=== PATIENT | male | born 1950 | race Caucasian/White ===

== ENCOUNTER 2021-07-27 10:26 | Outpatient (CLI) | payer MEDICARE, OTHER, SELFPAY ==
--- NOTE | ~2021-07-27 | XR_ITS ---
EXAMINATION: XR abdomen/kub 1V INDICATION: Right-sided kidney stone TECHNIQUE: Supine views of the abdomen were obtained on 2 radiographs. COMPARISON: None FINDINGS: Bowel contents project over the kidneys limiting sensitivity for renal stones. There is a q uestionable 1.5 cm stone of the right kidney. No stones are identified along the expected course of t he ureters or within the urinary bladder. The bowel gas pattern is normal. There is moderate to sever e lumbar spondylosis. IMPRESSION: 1. Possible right kidney stone, sensitivity slightly limited by bowel contents. Reviewed, dictated and finalized at location F. LTY TWISTER OPERATOR
== END 2021-07-27 10:27 | disposition home or self-care (01) ==
PROVIDERS: PCP Family Medicine; Visit Provider Urology
DX: N20.0 Calculus of kidney (principal)
CPT/HCPCS: 74018

== ENCOUNTER 2021-07-28 13:02 | Outpatient (CLI) | payer MEDICARE, OTHER, SELFPAY ==
--- NOTE | 2021-07-28 13:11 | ECG_ITS ---
Measurements Intervals [place] Rate: 77 P: 1 IA: 317 QRS: -13 QRSD: 125 T: 87 QT: 381 QTc: 433 Interpretive Statements SINUS RHYTHM WITH FIRST DEGREE AV BLOCK INTRAVENTRICULAR CONDUCTION DELAY ANTEROSEPTAL INFARCT, AGE INDETERMINATE BORDERLINE ST-T WAVE ABNORMALITY- HIGH LATERAL LEADS BASELINE ARTIFACT- I, II, III, AVR, AVL, AVF ABNORMAL ECG Electronically Signed On 07-28-2021 13:56:52 DRUM DYEING MACHINE OPERATOR by Enrique Ibarra D.O.
[2021-07-28 13:55] LABS: Prothrombin Time 12.8 Seconds (11.1-14.7)
[2021-07-28 13:56] LABS: Partial Thromboplastin Time 29.7 SECONDS (22.3-36.8)
[2021-07-28 13:57] LABS: Anion Gap 9 mmol/L (8-16); Blood Urea Nitrogen 30 mg/dL (9-20); Calcium 8.7 mg/dL (8.4-10.2); Carbon Dioxide 27 mmol/L (22-30); Chloride 98 mmol/L (98-107); Estimated Glomerular Filt Rate 55; Glucose 237 mg/dL (65-110); Sodium 134 mmol/L (137-145)
== END 2021-07-28 13:03 | disposition home or self-care (01) ==
LOC: ANHSURGERY 13:07
PROVIDERS: Anesthesiology; PCP Family Medicine; Visit Provider Urology
DX: Z01.818 Encounter for other preprocedural examination (principal); N20.0 Calculus of kidney; E11.9 Type 2 diabetes mellitus without complications; I10 Essential (primary) hypertension; R94.31 Abnormal electrocardiogram [ECG] [EKG]
CPT/HCPCS: 36415; 80048; 85610; 85730; 87086; 93005

== ENCOUNTER 2021-07-31 01:03 | Day surgery (SDC) | payer MEDICARE, OTHER, SELFPAY ==
--- NOTE | 2021-07-28 10:43 | PC.NURSE ---
Report to the Outpatient Waiting Room, entrance under the green pavilion located off [facility], at time _0630 on date __07/31/21 . OR Time: . - You and your visitor will be asked a series of questions to screen for COVID 19 for your protection. - A mask is required within the hospital. Preoperative COVID Testing Requirements: No COVID Test needed if: (proof is required; if not received patient will have Rapid Test prior to entry) - Patient has received COVID Vaccine at least 14 days prior to procedure date or - Patient has positive COVID test result within last 90 days of surgery date. COVID Test needed if above criteria is not met If not COVID vaccinated a COVID test must be conducted within 72 hours of surgery and patient is asked to isolate self from time of testing until procedure. You will go to the [facility] for your COVID testing. The [facility] is located at the corner of [address] [facility]. You will only be called if COVID results are positive and your surgeon may reschedule your elective surgery date. Patients may have clear liquids (water, carbonated beverages, clear teas, apple juice) until 3 hours prior to surgery with a maximum of 20 ounces. - No food from midnight until time of surgery - Infants may have breast milk until 4 hours before surgery, infant formula 6 hours prior to surgery. - Children will be allowed to drink immediately following surgery. If applicable, please bring a bottle or sippy cup to assist with drinking. Juice, water, soda, and popsicles are readily available. For infants on formula, please bring formula the day of surgery. Pacifiers are allowed. Take the following medications with a SIP of water the morning of surgery: _AMLODIPINE,CARVEDILOL,GABAPENTIN,LEVOTHYROXINE Medications to discontinue per physician __PT STATES HAS ALL READY STOPPED ASPIRIN PER DR CRUZ, ALL VITAMINS AND SUPPLEMENTS 3 DAYS PRE OP Date to take last dose__07/27/21 Please no make-up, nail egyptian, hairspray, perfume, deodorant, or body powder the day of surgery. No jewelry (including any body piercings) or valuables the day of surgery, leave them at home. Please take a shower or bath the night before, or the morning of, surgery with an antibacterial soap. Wear comfortable, loose fitting clothing. Children are encouraged to wear pajamas. - Jewelry must be removed prior to entering the operating room. Rings and piercings that are not removed may be cut off. - The hospital will not accept responsibility for valuables. - Please leave all valuables, including medications, at home the day of surgery. If you are going home after surgery, a licensed truck driver teamster must drive you home. - NO public transportation without another adult. - We recommend that an adult stay with you for 24 hours following discharge. - We also recommend that you do not drive, make important decision, drink alcoholic beverages, or take any drugs that were not prescribed by your health care provider for at least 24 hours after your discharge time. For Pediatric surgeries, we recommend two adults accompany the child home (only one inside the building at this time). One visitor will be allowed to accompany the patient into the hospital. Patients visitor will be instructed to remain with patient at all times or leave the building. We will allow the visitor to come back to the postoperative area when patient is ready. Follow any additional instructions given to you from your surgeon. Telephone instructions given to __PATIENT and asked if any additional questions and then verbalized understanding. Patient advised to call surgeon office or pre surgery nurse liaison [phone] if any additional questions.
[2021-07-28 10:54] VITALS: BMI 36.3
[2021-07-31] VITALS (8 sets, daily range): BP systolic 129–162; BP diastolic 80–93; PULSE 70–87; RESP 16–19; TEMP 36.5–36.6; O2SAT 98–100
--- NOTE | ~2021-07-31 | XR_ITS ---
EXAMINATION: XR abdomen/kub 1V DATE: 07/31/2021 06:49 INDICATION: Kidney stone. TECHNIQUE: A supine view of the abdomen on 2 radiographs was obtained. COMPARISON: Abdomen radiographs 07/27/2021 FINDINGS: There are no dilated loops of bowel. The kidneys are obscured by bowel. There is no visible urolithiasis. IMPRESSION: 1. No visible urolithiasis. Reviewed, dictated and finalized at location A. [facility] [employer] IMPRESSION: 1. No visible urolithiasis.
--- NOTE | 2021-07-31 06:47 | WPDHPUPDATE1 ---
History and Physical Update Update Date/Time: 07/31/21 06:47 13mm right renal stone difficult to see on KUB today. Will plan possible cystoscopy with right retrograde pyelography. History and Physical has been reviewed, including an updated exam of the patient. There are NO changes in the patient's condition. Risks, benefits, and alternatives have been discussed and questions answered. Patient agrees to proceed with procedure.
[2021-07-31] MEDS: LACTATED RINGERS 1,000 ML 30 ML IV CONT (07:00)
[2021-07-31 07:28] LABS: Glucose Point of Care 150 mg/dl (65-105)
--- NOTE | 2021-07-31 07:51 | WPDANESEPPF ---
Anes - Initial Pre Proc Eval Procedure: Operation Date: 07/31/21 08:30 Proposed Procedures p Right Extracorporeal Shock Wave Lithotripsy - Doc Duckworth MD Date/Time: 07/31/21 07:51 Surgeon: Doc Duckworth MD Pre Op Diagnosis: right renal kidney stone Patient Data Age: 70 Gender: M Height: 1.85 m Weight: 124.75 kg Allergies Allergy/AdvReac Type Severity Reaction Status Date / Time lisinopril AdvReac ELEVATE Verified 07/31/21 07:45 POTASSIUM Home Medications Medication Instructions Recorded Confirmed Type amlodipine 10 mg PO DAILY 07/28/21 07/28/21 History aspirin [Adult Low Dose Aspirin] 81 mg PO HS 07/28/21 07/28/21 History carvedilol 6.25 mg PO BID 07/28/21 07/28/21 History cholecalciferol (vitamin D3) 50 mcg PO DAILY 07/28/21 07/28/21 History cyanocobalamin (vitamin B-12) 1,000 mcg PO DAILY 07/28/21 07/28/21 History empagliflozin 25 mg PO DAILY 07/28/21 07/28/21 History ezetimibe 10 mg PO DAILY 07/28/21 07/28/21 History gabapentin 300 mg PO DAILY 07/28/21 07/28/21 History glipizide 5 mg PO BID 07/28/21 07/28/21 History hydrochlorothiazide 25 mg PO DAILY 07/28/21 07/28/21 History insulin degludec [Tresiba 50 unit SUBCUT QPM 07/28/21 07/28/21 History FlexTouch U-200] levothyroxine 175 mcg PO DAILY 07/28/21 07/28/21 History metformin 1,000 mg PO BID 07/28/21 07/28/21 History rosuvastatin 10 mg PO DAILY 07/28/21 07/28/21 History semaglutide [Ozempic] 1 mg SUBCUT WEEKLY 07/28/21 07/28/21 History turmeric 400 mg PO DAILY 07/28/21 07/28/21 History Laboratory Tests 07/31/21 07:19 POC Capillary Glucose 150 mg/dl H mg/dl (65-105) Patient hx anesthesia problems: none Family hx anesthesia problems: none Results Review: All pre-operative results and documents have been reviewed as part of the pre-operative evaluation. [facility] Past Medical History Medical History (Updated 07/31/21 @ 07:51 by Roberth Scott MD) Diabetes HTN (hypertension) Hyperlipidemia JACKELYN (obstructive sleep apnea) Surgical History Surgical History (Updated 07/31/21 @ 07:52 by Roberth Scott MD) History of total knee arthroplasty Social History Social History Smoking status: Never smoker Alcohol intake: current Drinks per week: 1 Living arrangements: alone Spiritual care concerns: No Anes - Eval Final PreProcedure Day of Procedure 07/31/21 07:51 Patient weight: obese Heart: regular rate and rhythm Lungs: clear to auscultation Airway: Mallampati scale class II Neurological: alert and oriented Last oral intake: >/= 8 hours ASA classification: III Emergent: no Anesthetic plan: proceed Anesthesia type and monitoring: general LMA and standard monitoring Results Review: All pre-operative results and documents have been reviewed as part of the pre-operative evaluation. Informed Consent: The patient's anesthetic plan and its attendant risks and benefits were discussed with the patient/family/POA. Questions were solicited and answers provided to the satisfaction of the patient/family/POA.
[2021-07-31] MEDS: ceFAZolin 3 GM/D5W 100 ML 100 ML IVPB (08:45)
--- NOTE | 2021-07-31 09:23 | W.PM.PROC2 ---
Procedure Note - Detailed Date of Procedure 07/31/21 Pre-op Diagnosis Right renal kidney stone Post-op Diagnosis same Procedure Performed Cystoscopy, right retrograde pyelography Right ESWL Surgeon Doc Duckworth MD Anesthesia general Description of Procedure The patient was brought to the operative suite where he was placed in the supine position on the Dornier lithotripsy table. I could not definitively identify his right calculus on fluoroscopy therefore opted to cystoscopy with right retrograde pyelography. Cystoscopy was undertaken with a 16 F flexible cystoscope. He had no urethral strictures. 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 Bladder was mildly trabeculated. There is intravesical foreign neoplasm. Single orthotopic orifice bilaterally. 0.035 in glidewire was advanced in the right renal pelvis and retrograde pyelography was undertaken via a angiographic catheter. The 13 mm calculus could be identified an upper calyx.The focal point of the lithotripter was placed at that calculus. A total of 2500 shocks were delivered at a power setting of 4. There appeared to be good fragmentation of the stone. The patient tolerated the procedure well and was taken to the recovery room in good condition. Drains No Packing No Pathology none sent Complications No immediate complications Condition stable Disposition PACU
[2021-07-31 10:03] LABS: Glucose Point of Care 150 mg/dl (65-105)
--- NOTE | 2021-07-31 10:07 | SUR.PHASEI ---
0945-- right flank skin intact. without bruising or other issues. pt withot c/o pain.
== END 2021-07-31 11:25 | disposition home or self-care (01) ==
PROVIDERS: PCP Family Medicine; Visit Provider Urology
PROC: (CPT 50590; principal; 2021-07-31 08:30)
PROC: (CPT 52352; 2021-07-31 08:30)
DX: N20.0 Calculus of kidney (principal); Z79.82 Long term (current) use of aspirin; Z79.84 Long term (current) use of oral hypoglycemic drugs; E03.9 Hypothyroidism, unspecified; Z79.4 Long term (current) use of insulin; E11.9 Type 2 diabetes mellitus without complications; I10 Essential (primary) hypertension; E78.5 Hyperlipidemia, unspecified; G47.33 Obstructive sleep apnea (adult) (pediatric); E66.9 Obesity, unspecified; Z68.35 Body mass index [BMI] 35.0-35.9, adult
CPT/HCPCS: 50590; 74018; 82948; A9270; C1769; C1887; J0690; J2405; J2704; J3010; J7030; J7120; Q9966

== ENCOUNTER 2021-09-08 09:50 | Emergency (ER) | payer MEDICARE, OTHER, SELFPAY ==
[2021-09-08 09:59] VITALS: BP 106/69; PULSE 82; RESP 18; TEMP 36.1; O2SAT 97
[2021-09-08 12:14] LABS: Basophils Absolute Auto 0.1 K/mm3 (0.0-0.1); Basophils Percent Auto 0.3 % (0.2-1.2); Eosinophils Absolute Auto 0.1 K/mm3 (0-0.3); Eosinophils Percent Auto 0.7 % (0-4.4); Hematocrit 51.9 % (42.0-52.0); Immature Granulocyte Absolute 0.14 K/mm3 (0.00-0.031); Immature Granulocyte Percent A 0.9 % (0-0.5); Lymphocytes Absolute Auto 1.26 K/mm3 (0.9-3.2); Lymphocytes Percent Auto 7.8 % (18.3-44.2); Mean Corpuscular HGB Conc 32.8 g/dl (32-36); Mean Corpuscular Hemoglobin 28.8 pg (26-34); Mean Corpuscular Volume 87.8 fl (80-100); Mean Platelet Volume 8.3 fl (7.4-10.4); Monocytes Absolute Auto 1.8 K/mm3 (0.1-0.6); Monocytes Percent Auto 10.9 % (2.6-8.5); Neutrophils Absolute Auto 12.8 K/mm3 (1.3-6.7); Neutrophils Percent Auto 79.4 % (45.5-73.1); Platelet Count Result 303 k/mm3 (150-375); Red Blood Count 5.91 M/mm3 (4.6-6.20); White Blood Count 16.2 K/mm3 (4.5-10.0)
[2021-09-08 12:25] LABS: Alanine Aminotransferase 16 U/L (4-50); Albumin Level 4.4 g/dL (3.5-5.1); Alkaline Phosphatase 109 U/L (38-126); Anion Gap 9 mmol/L (8-16); Aspartate Amino Transferase 23 U/L (17-59); Bilirubin,Total 0.7 mg/dL (0.2-1.3); Blood Urea Nitrogen 35 mg/dL (9-20); Calcium 9.1 mg/dL (8.4-10.2); Carbon Dioxide 26 mmol/L (22-30); Chloride 96 mmol/L (98-107); Estimated CRCL calculation 66 ml/min; Estimated Glomerular Filt Rate 55; Glucose 151 mg/dL (65-110); Potassium 4.1 mmol/L (3.4-5.0); Sodium 131 mmol/L (137-145)
--- NOTE | 2021-09-08 12:57 | ED.EXTPRO ---
HPI - Extremity Problem General Chief complaint: Extremity Problem,Nontraumatic Stated complaint: feet pain Time Seen by Provider: 09/08/21 11:37 Source: patient Mode of arrival: ambulatory Limitations: no limitations History of Present Illness HPI Narrative: Pt is a 70 y/o male, PMHx of gout, HTN and DM, presents to ED via pOV with pain and swelling of the 1st MTP joint of both feet and the right index finger PIP joint, consistent with gout he has experienced in the past. He denies any known exacerbating events and he denies trauma. HE has not changed his diet or started any new medications. He does take HCTZ for BP and has for several years. He recently had a steroid injection in the right knee last week. This was well tolerated and he has no pain, swelling or erythema of the right knee. He no longer takes Allopurinol after having several years without a gouty flare. He denies any additional associated symptoms or modifying factors. MD Complaint: other (refer to HPI) Onset (ago): day(s) (3) Pain Consistency: constant Location: other (refer to HPI) Severity scale (1-10): 7 Quality: stabbing and aching Radiation: other (refer to HPI) Relieving factors: other (one dose of Naproxen yesterday improved some of his discomfort) Exacerbating factors: weight bearing and palpation Associated symptoms: denies other symptoms Related Data Home Medications Medication Instructions Recorded Confirmed Ozempic 1 mg SUBCUT WEEKLY 07/28/21 07/31/21 Tresiba FlexTouch U-200 50 unit SUBCUT QPM 07/28/21 07/31/21 amlodipine 10 mg PO DAILY 07/28/21 07/31/21 aspirin 81 mg PO HS 07/28/21 07/31/21 carvedilol 6.25 mg PO BID 07/28/21 07/31/21 cholecalciferol (vitamin D3) 50 mcg PO DAILY 07/28/21 07/31/21 cyanocobalamin (vitamin B-12) 1,000 mcg PO DAILY 07/28/21 07/31/21 empagliflozin 25 mg PO DAILY 07/28/21 07/31/21 ezetimibe 10 mg PO DAILY 07/28/21 07/31/21 gabapentin 300 mg PO DAILY 07/28/21 07/31/21 glipizide 5 mg PO BID 07/28/21 07/31/21 hydrochlorothiazide 25 mg PO DAILY 07/28/21 07/31/21 levothyroxine 175 mcg PO DAILY 07/28/21 07/31/21 metformin 1,000 mg PO BID 07/28/21 07/31/21 rosuvastatin 10 mg PO DAILY 07/28/21 07/31/21 turmeric 400 mg PO DAILY 07/28/21 07/31/21 Allergies Allergy/AdvReac Type Severity Reaction Status Date / Time lisinopril AdvReac ELEVATE Verified 07/31/21 07:45 POTASSIUM Review of Systems Review of Systems: refer to HPI Musculoskeletal: Musculoskeletal: Reports as per HPI [facility] Past Medical History Medical History Diabetes HTN (hypertension) Hyperlipidemia JACKELYN (obstructive sleep apnea) Surgical History Surgical History History of total knee arthroplasty Social History Social History Smoking status: Never smoker Alcohol intake: current Drinks per week: 1 Spiritual care concerns: No Exam Const: General: healthy appearing, no acute distress and alert Nutritional Appearance: obese Orientation/consciousness: patient oriented x3 HENMT: Head: normal to inspection Eyes: Conjunctivae: conjunctivae normal Pupils: Equal, round and reactive pupils present EOM: EOMs intact bilaterally Neck: Neck: normal visual inspection Chest: Chest palpation & inspection: normal inspection of the chest Resp: Effort & Inspection: normal respiratory effort Auscultation: clear to auscultation bilaterally Cardio: Rate: regular rate GI: GI Palp: Yes Soft to palpation Back/Spine/Pelvis: Back: no CVA tenderness Skin: General skin exam: normal color Neuro: General: patient oriented x3, moves all extremities, no meningeal signs and no focal motor deficits Extrem: Other: Pt has swelling of the right index PIP joint, no erythema noted. Pain increases with flexion and extension. Distal PMS intact. Bilateral 1st MTP joints are swollen and TTP. He emery
== END 2021-09-08 13:50 | disposition home or self-care (01) ==
PROVIDERS: Emergency Provider Nurse Practitioner Family; PCP Family Medicine
DX: M10.9 Gout, unspecified (principal); E11.9 Type 2 diabetes mellitus without complications; I10 Essential (primary) hypertension; E78.5 Hyperlipidemia, unspecified; G47.33 Obstructive sleep apnea (adult) (pediatric); Z79.899 Other long term (current) drug therapy; Z79.82 Long term (current) use of aspirin; Z88.8 Allergy status to other drugs, medicaments and biological substances
CPT/HCPCS: 36415; 80053; 84550; 85025; 99283

== ENCOUNTER 2022-02-22 12:15 | Outpatient (CLI) | payer MEDICARE, OTHER, SELFPAY ==
--- NOTE | ~2022-02-22 | CT_ITS ---
EXAMINATION: CT abdomen pelvis wo con DATE: 02/22/2022 12:44 INDICATION: Low abdominal pain. Dysuria. TECHNIQUE: Computed tomography (CT) of the abdomen and pelvis was performed without intravenous contr ast. Automated exposure control and iterative reconstruction technique were employed. The dose-length product was 1370.24 mGy-cm. COMPARISON: None. FINDINGS: The visualized portions of the lung bases demonstrate mild atelectasis. Calcified pulmonary nodules are consistent with old granulomatous disease. No pleural effusion. The heart size is normal . There are coronary artery calcifications. There is a trace pericardial effusion. The liver, gallbla dder, spleen, pancreas, and adrenal glands are normal. There are cysts in the kidneys measuring up to 3.0 cm on the right. There is a 9 mm stone in right kidney. There are scattered diverticula in the c olon. There is old fat necrosis involving an epiploic appendage of sigmoid colon. There are no dilate d loops of bowel. The appendix is normal. There are no pathologically enlarged lymph nodes. There is no free intraperitoneal fluid. There is severe lumbar spondylosis. There are bridging endplate osteop hytes at multiple levels in the thoracic spine, consistent with diffuse idiopathic skeletal hyperosto sis (DISH). IMPRESSION: 1. 9 mm right kidney stone. Reviewed, dictated and finalized at location A. IMPRESSION: 1. 9 mm right kidney stone.
--- NOTE | ~2022-02-22 | XR_ITS ---
XR abdomen/kub 1V 02/22/2022 12:36 Indication: Complicated UTI. Procedure: KUB Comparison: 07/31/2021 Findings: There is a stone in the lower pole of the right kidney. Bowel gas pattern nonobstructive. M oderate-severe lumbar spondylosis. No acute osseous abnormality. Impression: 1: Right nephrolithiasis. Reviewed, dictated and finalized at location A. Impression: 1: Right nephrolithiasis.
== END 2022-02-22 12:16 | disposition home or self-care (01) ==
LOC: ANHIMG 12:21
PROVIDERS: PCP Family Medicine; Visit Provider Urology
DX: N39.0 Urinary tract infection, site not specified (principal); N20.0 Calculus of kidney
CPT/HCPCS: 74018; 74176

== ENCOUNTER 2022-03-18 10:18 | Outpatient (CLI) | payer MEDICARE, OTHER, SELFPAY ==
[2022-03-18 10:59] LABS: Anion Gap 10 mmol/L (8-16); Blood Urea Nitrogen 32 mg/dL (9-20); Calcium 9.5 mg/dL (8.4-10.2); Carbon Dioxide 26 mmol/L (22-30); Chloride 99 mmol/L (98-107); Estimated Glomerular Filt Rate 60; Glucose 202 mg/dL (65-110); Potassium 3.7 mmol/L (3.4-5.0); Sodium 135 mmol/L (137-145)
== END 2022-03-18 10:19 | disposition home or self-care (01) ==
PROVIDERS: Anesthesiology; PCP Family Medicine; Visit Provider Urology
DX: Z01.818 Encounter for other preprocedural examination (principal); E11.9 Type 2 diabetes mellitus without complications
CPT/HCPCS: 36415; 80048

== ENCOUNTER 2022-03-25 01:04 | Day surgery (SDC) | payer MEDICARE, OTHER, SELFPAY ==
--- NOTE | 2022-03-12 11:42 | PC.NURSE ---
Report to the Outpatient Waiting Room, entrance under the green pavilion located off [facility], at time _0615 on date ___03/25/22____. OR Time: __08 . Time changes happen often and if your time is changed the preop area will call you the afternoon before. - You and your visitor will be asked to self-screen and do not enter if you have any COVID symptoms. - We encourage only one visitor and NO visitors under age 16 are allowed at this time. Your visitor will receive communication by the phone number that is given day of service. - The patient visitor is requested to social distance or may leave the building when not with patient due to restrictions. - A mask is required within the hospital. Patients may have clear liquids (water, carbonated beverages, clear teas, apple juice) until 3 hours prior to surgery with a maximum of 20 ounces. - No food from midnight until time of surgery - Infants may have breast milk until 4 hours before surgery, infant formula 6 hours prior to surgery. - Children will be allowed to drink immediately following surgery. If applicable, please bring a bottle or sippy cup to assist with drinking. Juice, water, soda, and popsicles are readily available. For infants on formula, please bring formula the day of surgery. Pacifiers are allowed. Take the following medications with a SIP of water the morning of surgery: _AMLODIPINE,CARVEDILOL,GABAPENTIN,LEVOTHYROXINE Medications to discontinue per physician __PT TO CALL DR CRUZ REGARDING IF TO HOLD ASPIRIN. ALL VITAMINS/SUPPLEMENTS 3 DAYS PRE OP Date to take last dose____03/21/22 Please no make-up, nail bengali, hairspray, perfume, deodorant, or body powder the day of surgery. No jewelry (including any body piercings) or valuables the day of surgery, leave them at home. Please take a shower or bath the night before, or the morning of, surgery with an antibacterial soap. Wear comfortable, loose fitting clothing. Children are encouraged to wear pajamas. - Jewelry must be removed prior to entering the operating room. Rings and piercings that are not removed may be cut off. - The hospital will not accept responsibility for valuables. - Please leave all valuables, including medications, at home the day of surgery. If you are going home after surgery, a licensed skidder driver must drive you home. - NO public transportation without another adult. - We recommend that an adult stay with you for 24 hours following discharge. - We also recommend that you do not drive, make important decision, drink alcoholic beverages, or take any drugs that were not prescribed by your health care provider for at least 24 hours after your discharge time. For Pediatric surgeries, we recommend two adults accompany the child home. Follow any additional instructions given to you from your surgeon. If you or anyone in your household have experienced Covid symptoms in the past week, please notify your surgeon or the nurse liaison at the phone number below for possible testing. Telephone instructions given to __PATIENT and asked if any additional questions and then verbalized understanding. Patient advised to call surgeon office or pre surgery nurse liaison [phone] if any additional questions.
[2022-03-12 11:51] VITALS: BMI 31.0
--- NOTE | 2022-03-24 10:24 | WPDANESEPPF ---
Anes - Initial Pre Proc Eval Procedure: Operation Date: 03/25/22 08:15 Proposed Procedures p Cystoscopy, Bilateral Retrograde Pyelogram, Bladder Biopsy - Doc Duckworth MD Date/Time: 03/24/22 10:24 Surgeon: Doc Duckworth MD Pre Op Diagnosis: complicated UTI Patient Data Age: 71 Gender: M Height: 1.88 m Weight: 109.77 kg Allergies Allergy/AdvReac Type Severity Reaction Status Date / Time duloxetine [From Cymbalta] AdvReac Hypotension Verified 03/25/22 06:54 lisinopril AdvReac ELEVATE Verified 03/25/22 06:54 POTASSIUM Home Medications Medication Instructions Recorded Confirmed Type amlodipine 10 mg tablet 10 mg PO DAILY 07/28/21 03/25/22 History aspirin 81 mg tablet 81 mg PO HS 07/28/21 03/25/22 History carvedilol 6.25 mg tablet 6.25 mg PO BID 07/28/21 03/12/22 History cholecalciferol (vitamin D3) 50 50 mcg PO DAILY 07/28/21 03/25/22 History mcg (2,000 unit) tablet cyanocobalamin (vitamin B-12) 1,000 mcg PO DAILY 07/28/21 03/25/22 History 1,000 mcg tablet empagliflozin 25 mg tablet 25 mg PO DAILY 07/28/21 03/12/22 History ezetimibe 10 mg tablet 10 mg PO DAILY 07/28/21 03/12/22 History gabapentin 300 mg capsule 300 mg PO DAILY 07/28/21 03/25/22 History glipizide 5 mg tablet 5 mg PO BID 07/28/21 03/12/22 History hydrochlorothiazide 25 mg tablet 25 mg PO DAILY 07/28/21 03/12/22 History insulin degludec 200 unit/mL (3 50 unit subcut QPM 07/28/21 03/12/22 History mL) subcutaneous pen (Tresiba FlexTouch U-200 insulin) levothyroxine 175 mcg tablet 175 mcg PO DAILY 07/28/21 03/25/22 History metformin 500 mg tablet,extended 1,000 mg PO BID 07/28/21 03/12/22 History release 24 hr rosuvastatin 10 mg tablet 10 mg PO DAILY 07/28/21 03/12/22 History semaglutide 1 mg/dose (4 mg/3 mL) 1 mg subcut WEEKLY 07/28/21 03/12/22 History subcutaneous pen injector (Ozempic) turmeric 400 mg capsule 400 mg PO DAILY 07/28/21 03/25/22 History acetaminophen 650 mg 1,300 mg PO Q12H PRN Pain 03/12/22 03/12/22 History tablet,extended release (Tylenol Arthritis Pain) allopurinol 100 mg tablet 300 mg PO BID 03/12/22 03/12/22 History hydroxychloroquine 200 mg tablet 200 mg PO BID 03/12/22 03/12/22 History Patient hx anesthesia problems: none Family hx anesthesia problems: none Results Review: All pre-operative results and documents have been reviewed as part of the pre-operative evaluation. [facility] Past Medical History Medical History (Updated 03/24/22 @ 10:24 by Pb Degroot DO) Diabetes HTN (hypertension) Hyperlipidemia Hypothyroidism Neuropathy JACKELYN (obstructive sleep apnea) Surgical History Surgical History History of total knee arthroplasty Social History Social History Smoking status: Never smoker Alcohol intake: current Drinks per week: 1 Living arrangements: alone Spiritual care concerns: No Anes - Eval Final PreProcedure Day of Procedure 03/24/22 10:24 Patient weight: obese Heart: regular rate and rhythm Lungs: clear to auscultation Airway: Mallampati scale class III Neurological: alert and oriented Last oral intake: >/= 8 hours ASA classification: III Emergent: no Anesthetic plan: proceed Anesthesia type and monitoring: general LMA and standard monitoring Results Review: All pre-operative results and documents have been reviewed as part of the pre-operative evaluation. Informed Consent: The patient's anesthetic plan and its attendant risks and benefits were discussed with the patient/family/POA. Questions were solicited and answers provided to the satisfaction of the patient/family/POA.
[2022-03-25] VITALS (7 sets, daily range): BP systolic 140–170; BP diastolic 79–94; PULSE 66–86; RESP 16–20; TEMP 36.4–36.7; O2SAT 96–100; BMI 31.2
--- NOTE | ~2022-03-25 | XR_ITS ---
EXAMINATION: XR retrograde pyelogram BI DATE: 03/25/2022 09:05 CDT INDICATION: Right renal stone TECHNIQUE: Multiple fluoroscopic images from bilateral retrograde pyelogram are submitted for review. 42 seconds of fluoroscopy. 108 fluoroscopic images. FINDINGS: Normal left retrograde pyelogram. There is a filling defect in the lower pole calyx of the right kidney, consistent with known renal stone. No hydronephrosis. IMPRESSION: 1. Filling defect lower pole calyx of the right kidney, consistent with renal stone identified on CT dated 02/22/2022.. Correlate with real time procedural findings for details. Reviewed, dictated and finalized at location A. IMPRESSION: 1. Filling defect lower pole calyx of the right kidney, consistent with renal stone identified on CT dated 02/22/2022.. Correlate with real time procedural fi ndings for details.
--- NOTE | 2022-03-25 06:40 | WPDHPUPDATE1 ---
History and Physical Update Update Date/Time: 03/25/22 06:40 History and Physical has been reviewed, including an updated exam of the patient. There are NO changes in the patient's condition. Risks, benefits, and alternatives have been discussed and questions answered. Patient agrees to proceed with procedure.
[2022-03-25] MEDS: LACTATED RINGERS 1,000 ML 30 ML IV CONT (07:05)
[2022-03-25 07:22] LABS: Glucose Point of Care 118 mg/dl (65-105)
[2022-03-25] MEDS: ceFAZolin 2 GM/D5W 50 ML 2 GM/50 ML BAG IVPB (08:08)
[2022-03-25] MEDS: LIDOCAINE HCL 2% GEL UROJET 10 ML PKG MUCOUS MEM (08:17)
--- NOTE | 2022-03-25 08:40 | W.PM.PROC2 ---
Procedure Note - Detailed Date of Procedure 03/25/22 Pre-op Diagnosis Complicated UTI Post-op Diagnosis Same Procedure Performed Cystoscopy, bilateral retrograde pyelography, bladder biopsy Surgeon Doc Duckworth MD Description of Procedure patient is brought to the operative suite where he was prepped draped in routine sterile fashion while in dorsal lithotomy position after the uneventful induction of a general LMA anesthetic. Cystoscopy is undertaken with a 21 F rigid cystoscope. There was no urethral stricture. He has moderate lateral lobe hyperplasia with a small median. His prostatic urethra measures approximately 2.5 cm. His bladder shows mild trabeculation. There was 3 small areas of hyperemia in the bladder mucosa. These are scattered in the posterior and left lateral wall, each measuring about 1 cm in diameter. A pole cup biopsy forceps used to biopsy 2 of these areas and the base of the biopsy site is cauterized with a Bugbee electrode. Cone-tipped catheter was then used to obtain bilateral retrograde pyelograms. Ureteral pyelogram showed no evidence of obstruction, filling defects or other pathology. IThere. does appear to be a stone in the right lower pole calyx. At this point cystoscope was removed the patient was taken recovery room in good condition Pathology Yes Complications No immediate complications Condition Stable Disposition PACU
[2022-03-25 08:45] LABS: Glucose Point of Care 125 mg/dl (65-105)
== END 2022-03-25 10:05 | disposition home or self-care (01) ==
PROVIDERS: PCP Family Medicine; Visit Provider Urology
PROC: (CPT 52352; principal; 2022-03-25 08:15)
DX: N39.0 Urinary tract infection, site not specified (principal); I10 Essential (primary) hypertension; E78.5 Hyperlipidemia, unspecified; E03.9 Hypothyroidism, unspecified; E11.40 Type 2 diabetes mellitus with diabetic neuropathy, unspecified; G47.33 Obstructive sleep apnea (adult) (pediatric); Z79.82 Long term (current) use of aspirin; Z79.84 Long term (current) use of oral hypoglycemic drugs; Z79.4 Long term (current) use of insulin; Z79.899 Other long term (current) drug therapy; E66.9 Obesity, unspecified; Z68.31 Body mass index [BMI] 31.0-31.9, adult
CPT/HCPCS: 52204; 74420; 82948; 87086; 88305; 88342; A9270; C1758; C1769; J0690; J1100; J2405; J2704; J3010; J7120; Q9966

== ENCOUNTER 2022-05-13 00:45 | Day surgery (SDC) | payer MEDICARE, OTHER, SELFPAY ==
[2022-05-07 11:39] VITALS: BMI 30.8
--- NOTE | 2022-05-07 11:47 | PC.NURSE ---
PRE-OP INSTRUCTIONS, PLEASE READ CAREFULLY Report to the Outpatient Waiting Room, entrance under the green pavilion located off [facility], at time _1100_ on date _05/13/22_. Planned Procedure Time: _1 PM_. Time changes happen often and if your time is changed the preop area will call you the afternoon before. - You and your visitor will be asked to self-screen and do not enter if you have any COVID symptoms. - Only one visitor is requested with a max of two and NO children visitors are allowed at this time. - The patient visitor may be requested to leave or wait in car when not with patient due to distancing restrictions. - A mask is optional within the hospital. Patients may have clear liquids (water, carbonated beverages, clear teas, apple juice) until 3 hours prior to surgery (1000 AM) with a maximum of 20 ounces. - No food from midnight until time of surgery Take the following medications with a SIP of water the morning of surgery: _AMLODIPINE, CARVEDILOL, GABAPENTIN, LEVOTHYROXINE, TYLENOL IF NEEDED_ Medications to discontinue _ASPIRIN PER DR. CRUZ'S INSTRUCTIONS_ Medications to discontinue per ANESTHESIA - ALL VITAMINS AND SUPPLEMENTS, 3 DAYS PRIOR TO SURGERY, Date to take last dose 05/09/22_ Please no make-up, nail [place] citizen, hairspray, perfume, deodorant, or body powder the day of surgery. No jewelry (including any body piercings) or valuables the day of surgery, leave them at home. Please take a shower or bath the night before, or the morning of, surgery with an antibacterial soap. Wear comfortable, loose fitting clothing. - Jewelry must be removed prior to entering the operating room. Rings and piercings that are not removed may be cut off. - The hospital will not accept responsibility for valuables. - Please leave all valuables, including medications, at home the day of surgery. If you are going home after surgery, a licensed shuttle van driver must drive you home. - NO public transportation without another adult if you receive anesthesia. - We recommend that an adult stay with you for 24 hours following discharge. - We also recommend that you do not drive, make important decision, drink alcoholic beverages, or take any drugs that were not prescribed by your health care provider for at least 24 hours after your discharge time. Follow any additional instructions given to you from your surgeon. If you or anyone in your household have experienced Covid symptoms in the past week, please notify your surgeon or the nurse liaison at the phone number below for possible testing. Telephone instructions given to ____PT and asked if any additional questions and then verbalized understanding. Patient advised to call surgeon office or pre surgery nurse liaison [phone] if any additional questions.
--- NOTE | 2022-05-10 07:58 | PM.HPGS ---
History of Present Illness History of Present Illness Consent: Risks, benefits, and alternatives have been discussed and questions answered. Patient agrees to proceed with procedure. Chief complaint: Hematuria, Dysuria Narrative: Hans Marcus is a 71 year old male with a several week history of persistent dysuria microscopic hematuria. Cystoscopy reveals areas of persistent hyperemia in his bladder wall. One prior biopsy was suggestive of inflammation but the hyperemia persist despite a course of antibiotics. After discussion he has elected to proceed with repeat bladder biopsy/ bladder resection. He is aware of the risk including, but not limited to, need for additional therapy, hematuria and injury to the integrity of the bladder wall. Review of Systems Review of Systems: All systems reviewed & are unremarkable except as noted in HPI and below PMFSH Past Medical History Medical History (Updated 05/10/22 @ 08:00 by Doc Duckworth MD) Diabetes HTN (hypertension) Hyperlipidemia Hypothyroidism Neuropathy JACKELYN (obstructive sleep apnea) Surgical History Surgical History History of total knee arthroplasty Social History Social History Smoking status: Never smoker Second hand tobacco smoke exposure: No Alcohol intake: current Drinks per week: 1 Substance use: never Substance use type: does not use Living arrangements: alone Spiritual care concerns: No Meds Home Medications and Allergies Home Medications Medication Instructions Recorded Confirmed Type amlodipine 10 mg tablet 10 mg PO DAILY 07/28/21 05/07/22 History aspirin 81 mg tablet 81 mg PO HS 07/28/21 05/07/22 History carvedilol 6.25 mg tablet 6.25 mg PO BID 07/28/21 05/07/22 History cholecalciferol (vitamin D3) 50 50 mcg PO DAILY 07/28/21 05/07/22 History mcg (2,000 unit) tablet cyanocobalamin (vitamin B-12) 1,000 mcg PO DAILY 07/28/21 05/07/22 History 1,000 mcg tablet empagliflozin 25 mg tablet 25 mg PO DAILY 07/28/21 05/07/22 History ezetimibe 10 mg tablet 10 mg PO DAILY 07/28/21 05/07/22 History gabapentin 300 mg capsule 300 mg PO DAILY 07/28/21 05/07/22 History glipizide 5 mg tablet 5 mg PO BID 07/28/21 05/07/22 History hydrochlorothiazide 25 mg tablet 25 mg PO DAILY 07/28/21 05/07/22 History insulin degludec 200 unit/mL (3 50 unit subcut QPM 07/28/21 05/07/22 History mL) subcutaneous pen (Tresiba FlexTouch U-200 insulin) levothyroxine 175 mcg tablet 175 mcg PO DAILY 07/28/21 05/07/22 History metformin 500 mg tablet,extended 1,000 mg PO BID 07/28/21 05/07/22 History release 24 hr rosuvastatin 10 mg tablet 10 mg PO DAILY 07/28/21 05/07/22 History semaglutide 1 mg/dose (4 mg/3 mL) 1 mg subcut WEEKLY 07/28/21 05/07/22 History subcutaneous pen injector (Ozempic) turmeric 400 mg capsule 400 mg PO DAILY 07/28/21 05/07/22 History acetaminophen 650 mg 1,300 mg PO Q12H PRN Pain 03/12/22 05/07/22 History tablet,extended release (Tylenol Arthritis Pain) allopurinol 100 mg tablet 300 mg PO BID 03/12/22 05/07/22 History hydroxychloroquine 200 mg tablet 200 mg PO BID 03/12/22 05/07/22 History Allergies Allergy/AdvReac Type Severity Reaction Status Date / Time duloxetine [From Cymbalta] AdvReac Hypotension Verified 05/07/22 11:36 lisinopril AdvReac ELEVATE Verified 05/07/22 11:36 POTASSIUM Exam Const: General: no acute distress Resp: Effort & Inspection: normal respiratory effort GI: Inspection: non-distended GI Palp: No abdominal tenderness and No Guarding due to palpation present (GI) Auscultation: normal bowel sounds Assessment and Plan Assessment and plan (1) Dysuria: Code(s): R30.0 - Dysuria Status: Acute Assessment and Plan: cystoscopy, bladder biopsy/ bladder resection.
--- NOTE | 2022-05-12 11:40 | WPDANESEPPF ---
Anes - Initial Pre Proc Eval Procedure: Operation Date: 05/13/22 12:30 Proposed Procedures p Trans Urethral Resection Bladder Tumor - Doc Duckworth MD s Cystoscopy with Bladder Biopsy - Doc Duckworth MD Date/Time: 05/12/22 11:40 Surgeon: Doc Duckworth MD Pre Op Diagnosis: Hematuria, Dysuria Patient Data Age: 71 Gender: M Height: 1.88 m Weight: 109 kg Allergies Allergy/AdvReac Type Severity Reaction Status Date / Time duloxetine [From Cymbalta] AdvReac Hypotension Verified 05/13/22 10:48 lisinopril AdvReac ELEVATE Verified 05/13/22 10:48 POTASSIUM Home Medications Medication Instructions Recorded Confirmed Type amlodipine 10 mg tablet 10 mg PO DAILY 07/28/21 05/13/22 History aspirin 81 mg tablet 81 mg PO HS 07/28/21 05/13/22 History carvedilol 6.25 mg tablet 6.25 mg PO BID 07/28/21 05/13/22 History cholecalciferol (vitamin D3) 50 50 mcg PO DAILY 07/28/21 05/13/22 History mcg (2,000 unit) tablet cyanocobalamin (vitamin B-12) 1,000 mcg PO DAILY 07/28/21 05/13/22 History 1,000 mcg tablet empagliflozin 25 mg tablet 25 mg PO DAILY 07/28/21 05/13/22 History ezetimibe 10 mg tablet 10 mg PO DAILY 07/28/21 05/13/22 History gabapentin 300 mg capsule 300 mg PO DAILY 07/28/21 05/13/22 History glipizide 5 mg tablet 5 mg PO BID 07/28/21 05/13/22 History hydrochlorothiazide 25 mg tablet 25 mg PO DAILY 07/28/21 05/13/22 History insulin degludec 200 unit/mL (3 50 unit subcut QPM 07/28/21 05/13/22 History mL) subcutaneous pen (Tresiba FlexTouch U-200 insulin) levothyroxine 175 mcg tablet 175 mcg PO DAILY 07/28/21 05/13/22 History metformin 500 mg tablet,extended 1,000 mg PO BID 07/28/21 05/13/22 History release 24 hr rosuvastatin 10 mg tablet 10 mg PO DAILY 07/28/21 05/13/22 History semaglutide 1 mg/dose (4 mg/3 mL) 1 mg subcut WEEKLY 07/28/21 05/13/22 History subcutaneous pen injector (Ozempic) turmeric 400 mg capsule 400 mg PO DAILY 07/28/21 05/13/22 History acetaminophen 650 mg 1,300 mg PO Q12H PRN Pain 03/12/22 05/13/22 History tablet,extended release (Tylenol Arthritis Pain) allopurinol 100 mg tablet 300 mg PO BID 03/12/22 05/13/22 History hydroxychloroquine 200 mg tablet 200 mg PO BID 03/12/22 05/13/22 History folic acid 1 mg tablet 1 mg PO DAILY 05/13/22 05/13/22 History methotrexate 2.5 mg/mL oral 10 mg PO WEEKLY 05/13/22 05/13/22 History solution Patient hx anesthesia problems: none Family hx anesthesia problems: none Results Review: All pre-operative results and documents have been reviewed as part of the pre-operative evaluation. [facility] Past Medical History Medical History (Updated 05/10/22 @ 08:00 by Doc Duckworth MD) Diabetes HTN (hypertension) Hyperlipidemia Hypothyroidism Neuropathy JACKELYN (obstructive sleep apnea) Surgical History Surgical History History of total knee arthroplasty Social History Social History Smoking status: Never smoker Second hand tobacco smoke exposure: No Alcohol intake: current Drinks per week: 1 Substance use: never Substance use type: does not use Living arrangements: alone Spiritual care concerns: No Anes - Eval Final PreProcedure Day of Procedure 05/12/22 11:40 Patient weight: obese Heart: regular rate and rhythm Lungs: clear to auscultation Airway: Mallampati scale class II Neurological: alert and oriented Last oral intake: >/= 8 hours ASA classification: III Emergent: no Anesthetic plan: proceed Anesthesia type and monitoring: general LMA and standard monitoring Results Review: All pre-operative results and documents have been reviewed as part of the pre-operative evaluation. Informed Consent: The patient's anesthetic plan and its attendant risks and benefits were discussed with the patient/family/POA. Questions were solicited and answers provided to the satisfacti
[2022-05-13] VITALS (9 sets, daily range): BP systolic 132–147; BP diastolic 85–100; PULSE 62–87; RESP 12–18; TEMP 36.2–36.7; O2SAT 95–100
--- NOTE | 2022-05-13 06:48 | WPDHPUPDATE1 ---
History and Physical Update Update Date/Time: 05/13/22 06:48 History and Physical has been reviewed, including an updated exam of the patient. There are NO changes in the patient's condition. Risks, benefits, and alternatives have been discussed and questions answered. Patient agrees to proceed with procedure.
[2022-05-13] MEDS: LACTATED RINGERS 1,000 ML 30 ML IV CONT (11:05)
[2022-05-13 11:11] LABS: Glucose Point of Care 135 mg/dl (65-105)
[2022-05-13] MEDS: ceFAZolin 2 GM/D5W 50 ML 2 GM/50 ML BAG IVPB (11:57)
[2022-05-13] MEDS: LIDOCAINE HCL 2% GEL UROJET 10 ML PKG MUCOUS MEM (12:13)
--- NOTE | 2022-05-13 12:29 | W.PM.PROC2 ---
Procedure Note - Detailed Date of Procedure 05/13/22 Pre-op Diagnosis Hematuria, Dysuria Post-op Diagnosis Same Procedure Performed Transurethral resections/desiccation bladder wall ( medium, 3-4 cm) Surgeon Doc Duckworth MD Anesthesia General Description of Procedure Patient is brought to the operative suite was prepped draped in routine sterile fashion while in dorsal lithotomy position after the uneventful induction of a general LMA anesthetic. 2% xylocaine jelly was introduced intraurethrally and a 24 F resectoscope was placed in the bladder. He has he has 2 areas of patchy hyperemia it, 1 in each lateral wall. There was no maribel neoplasm. The remainder of the bladder mucosa is endoscopically normal. These areas are well away from the trigone or ureteral orifices. The prostatic urethra shows a 2-2.5 cm length with lateral lobe hyperplasia and no significant median lobe. Using a loop electrode I resected the bulk of these areas of hyperemia with care taken to avoid compromise to the integrity of the bladder wall. The base and periphery of these sites was cauterized with a rollerball electrode. All pieces were evacuated in the bladder was emptied. The patient tolerated the procedure well was taken recovery room in good condition. Estimated Blood Loss 0 Drains No Packing No Pathology Yes Complications No immediate complications Condition Stable Disposition PACU
[2022-05-13 12:39] LABS: Glucose Point of Care 111 mg/dl (65-105)
[2022-05-13] MEDS: oxyCODONE HCL (*CRX) 5 MG TAB IR PO (14:26)
== END 2022-05-13 14:39 | disposition home or self-care (01) ==
PROVIDERS: PCP Family Medicine; Visit Provider Urology
PROC: 0TBB8ZZ Excision of Bladder, Via Natural or Artificial Opening Endoscopic (ICD-10-PCS; CPT 52235; principal; 2022-05-13 12:30)
DX: N30.90 Cystitis, unspecified without hematuria (principal); I10 Essential (primary) hypertension; E78.5 Hyperlipidemia, unspecified; E03.9 Hypothyroidism, unspecified; E11.40 Type 2 diabetes mellitus with diabetic neuropathy, unspecified; G47.33 Obstructive sleep apnea (adult) (pediatric); Z79.84 Long term (current) use of oral hypoglycemic drugs; Z79.82 Long term (current) use of aspirin; Z79.4 Long term (current) use of insulin; Z79.899 Other long term (current) drug therapy; E66.9 Obesity, unspecified; Z68.30 Body mass index [BMI] 30.0-30.9, adult
CPT/HCPCS: 52235; 82948; 88305; 88307; 88342; A9270; J0690; J1100; J2405; J2704; J3010; J7120

== ENCOUNTER 2022-10-22 09:20 | Outpatient (CLI) | payer MEDICARE, OTHER, SELFPAY ==
--- NOTE | 2022-10-22 09:38 | ECG_ITS ---
Measurements Intervals [place] Rate: 63 P: [place]: 0 QRS: -16 QRSD: 137 T: 19 QT: 413 QTc: 424 Interpretive Statements SINUS RHYTHM WITH SECOND DEGREE AV BLOCK, TYPE II INTRAVENTRICULAR CONDUCTION DELAY CANNOT RULE OUT SEPTAL INFARCT, AGE INDETERMINATE INFERIOR INFARCT, AGE INDETERMINATE BORDERLINE T WAVE ABNORMALITY- HIGH LATERAL LEADS BASELINE ARTIFACT- I, II, III, AVR, AVL, AVF, V1-V6 ABNORMAL ECG COMPARED TO ECG 07/28/2021 13:29:26 SECOND DEGREE AV BLOCK NOW PRESENT Electronically Signed On 10-22-2022 11:28:09 CDT by Enrique Ibarra D.O.
[2022-10-22 10:37] LABS: Anion Gap 11 mmol/L (8-16); Blood Urea Nitrogen 40 mg/dL (9-20); Calcium 9.3 mg/dL (8.4-10.2); Carbon Dioxide 29 mmol/L (22-30); Chloride 94 mmol/L (98-107); Estimated Glomerular Filt Rate 54; Glucose 109 mg/dL (65-110); Potassium 3.5 mmol/L (3.4-5.0); Sodium 134 mmol/L (137-145)
== END 2022-10-22 09:21 | disposition home or self-care (01) ==
LOC: ANHSURGERY 09:28
PROVIDERS: Anesthesiology; PCP Family Medicine; Visit Provider Urology
DX: E11.9 Type 2 diabetes mellitus without complications (principal); I10 Essential (primary) hypertension; Z01.818 Encounter for other preprocedural examination; I45.9 Conduction disorder, unspecified; I44.1 Atrioventricular block, second degree
CPT/HCPCS: 36415; 80048; 93005

== ENCOUNTER 2022-10-28 01:14 | Day surgery (SDC) | payer MEDICARE, OTHER, SELFPAY ==
--- NOTE | 2022-10-20 14:03 | PC.NURSE ---
Report to the Outpatient Waiting Room, entrance under the green pavilion located off [facility], at time __1215 on date __10/28/22 . Planned Procedure Time: _1415 . Time changes happen often and if your time is changed the preop area will call you the afternoon before. - You and your visitor will be asked to self-screen and do not enter if you have any COVID symptoms. - A mask is optional within the hospital at this time. Patients may have clear liquids (water, carbonated beverages, clear teas, apple juice) until 3 hours prior to surgery with a maximum of 20 ounces. - No food from midnight until time of surgery - Infants may have breast milk until 4 hours before surgery, infant formula 6 hours prior to surgery. - Children will be allowed to drink immediately following surgery. If applicable, please bring a bottle or sippy cup to assist with drinking. Juice, water, soda, and popsicles are readily available. For infants on formula, please bring formula the day of surgery. Pacifiers are allowed. Take the following medications with a SIP of water the morning of surgery: ____AMLODIPINE,CARVEDILOL,GABAPENTIN,LEVOTHYROXINE DO NOT STOP ANY OF YOUR OTHER PRESCRIPTION MEDICATIONS PRIOR TO SURGERY ?EXCEPT THE FOLLOWING Medications to discontinue per physician __PT STATES HOLD ASPIRIN AND ALL VITAMINS/SUPPLEMENTS PER DR CRUZ.LAST DOSE 10/18/22 Please no make-up, nail [place], hairspray, perfume, deodorant, or body powder the day of surgery. No jewelry (including any body piercings) or valuables the day of surgery, leave them at home. Please take a shower or bath the night before, or the morning of, surgery with an antibacterial soap. Wear comfortable, loose fitting clothing. Children are encouraged to wear pajamas. - Jewelry must be removed prior to entering the operating room. Rings and piercings that are not removed may be cut off. - The hospital will not accept responsibility for valuables. - Please leave all valuables, including medications, at home the day of surgery. If you are going home after surgery, a licensed services delivery driver must drive you home. - NO public transportation without another adult if you receive anesthesia. - We recommend that an adult stay with you for 24 hours following discharge. - We also recommend that you do not drive, make important decision, drink alcoholic beverages, or take any drugs that were not prescribed by your health care provider for at least 24 hours after your discharge time. For Pediatric surgeries, we recommend two adults accompany the child home. Follow any additional instructions given to you from your surgeon. If you or anyone in your household have experienced Covid symptoms in the past week, please notify your surgeon or the nurse liaison at the phone number below for possible testing. Telephone instructions given to ___PATIENT and asked if any additional questions and then verbalized understanding. Patient advised to call surgeon office or pre surgery nurse liaison [phone] if any additional questions.
[2022-10-20 14:14] VITALS: BMI 32.2
--- NOTE | 2022-10-28 06:27 | WPDHPUPDATE1 ---
History and Physical Update Update Date/Time: 10/28/22 06:27 History and Physical has been reviewed, including an updated exam of the patient. There are NO changes in the patient's condition. Risks, benefits, and alternatives have been discussed and questions answered. Patient agrees to proceed with procedure.
[2022-10-28 12:19] VITALS: BP 141/81; PULSE 80; RESP 20; TEMP 36.2; O2SAT 97
[2022-10-28] MEDS: LACTATED RINGERS 1,000 ML 30 ML IV CONT (12:50)
[2022-10-28 13:00] LABS: Glucose Point of Care 154 mg/dl (65-105)
--- NOTE | 2022-10-28 13:04 | WPDANESEPPF ---
Anes - Initial Pre Proc Eval Procedure: Operation Date: 10/28/22 14:15 Proposed Procedures p Cystoscopy with Kenalog Injection - Doc Duckworth MD Date/Time: 10/28/22 13:04 Surgeon: Doc Duckworth MD Pre Op Diagnosis: Complicated UTI Patient Data Age: 71 Gender: M Height: 1.88 m Weight: 113.85 kg Allergies Allergy/AdvReac Type Severity Reaction Status Date / Time duloxetine [From Cymbalta] AdvReac Hypotension Verified 10/28/22 12:45 lisinopril AdvReac ELEVATE Verified 10/28/22 12:45 POTASSIUM Home Medications Medication Instructions Recorded Confirmed Type amlodipine 10 mg tablet 10 mg PO DAILY 07/28/21 10/28/22 History aspirin 81 mg tablet 81 mg PO HS 07/28/21 10/28/22 History carvedilol 6.25 mg tablet 6.25 mg PO BID 07/28/21 10/28/22 History cholecalciferol (vitamin D3) 50 50 mcg PO DAILY 07/28/21 10/28/22 History mcg (2,000 unit) tablet cyanocobalamin (vitamin B-12) 1,000 mcg PO DAILY 07/28/21 10/28/22 History 1,000 mcg tablet empagliflozin 25 mg tablet 25 mg PO DAILY 07/28/21 10/20/22 History ezetimibe 10 mg tablet 10 mg PO DAILY 07/28/21 10/20/22 History gabapentin 300 mg capsule 300 mg PO DAILY 07/28/21 10/28/22 History glipizide 5 mg tablet 5 mg PO BID 07/28/21 10/20/22 History hydrochlorothiazide 25 mg tablet 25 mg PO DAILY 07/28/21 10/20/22 History insulin degludec 200 unit/mL (3 50 unit subcut QPM 07/28/21 10/20/22 History mL) subcutaneous pen (Tresiba FlexTouch U-200 insulin) levothyroxine 175 mcg tablet 175 mcg PO DAILY 07/28/21 10/28/22 History metformin 500 mg tablet,extended 1,000 mg PO BID 07/28/21 10/20/22 History release 24 hr rosuvastatin 10 mg tablet 10 mg PO DAILY 07/28/21 10/20/22 History semaglutide 1 mg/dose (4 mg/3 mL) 1 mg subcut WEEKLY 07/28/21 10/20/22 History subcutaneous pen injector (Ozempic) turmeric 400 mg capsule 400 mg PO DAILY 07/28/21 10/28/22 History acetaminophen 650 mg 1,300 mg PO Q12H PRN Pain 03/12/22 10/20/22 History tablet,extended release (Tylenol Arthritis Pain) allopurinol 100 mg tablet 300 mg PO BID 03/12/22 10/20/22 History folic acid 1 mg tablet 1 mg PO DAILY 05/13/22 10/20/22 History hydrocodone 5 mg-acetaminophen 325 1 - 2 tablet PO Q6H PRN pain #20 05/13/22 10/20/22 Rx mg tablet tabs methotrexate 2.5 mg/mL oral 10 mg PO WEEKLY 05/13/22 10/20/22 History solution Laboratory Tests 10/28/22 12:55 POC Capillary Glucose 154 H mg/dl (65-105) Patient hx anesthesia problems: none Family hx anesthesia problems: none Results Review: All pre-operative results and documents have been reviewed as part of the pre-operative evaluation. [facility] Past Medical History Medical History (Updated 05/10/22 @ 08:00 by Doc Duckworth MD) Diabetes HTN (hypertension) Hyperlipidemia Hypothyroidism Neuropathy JACKELYN (obstructive sleep apnea) Surgical History Surgical History History of total knee arthroplasty Social History Social History Smoking status: Never smoker Second hand tobacco smoke exposure: No Alcohol intake: current Drinks per week: 2 Substance use: never Substance use type: does not use Living arrangements: alone Spiritual care concerns: No Anes - Eval Final PreProcedure Day of Procedure 10/28/22 13:04 Patient weight: obese Heart: regular rate and rhythm Lungs: clear to auscultation Airway: Mallampati scale class III Neurological: alert and oriented Last oral intake: >/= 8 hours ASA classification: III Emergent: no Anesthetic plan: proceed Anesthesia type and monitoring: general LMA and standard monitoring Results Review: All pre-operative results and documents have been reviewed as part of the pre-operative evaluation. Informed Consent: The patient's anesthetic plan and its attendant risks and benefits were discussed with the patient/family/
[2022-10-28] MEDS: ceFAZolin 2 GM/D5W 50 ML 2 GM/50 ML BAG IVPB (14:30)
[2022-10-28] MEDS: LIDOCAINE HCL 2% GEL UROJET 10 ML PKG MUCOUS MEM (14:49)
[2022-10-28] MEDS: TRIAMCINOLONE ACET INJ 40 MG/ML VIAL 200 MG IM (14:53)
--- NOTE | 2022-10-28 14:56 | W.PM.PROC2 ---
Procedure Note - Detailed Date of Procedure 10/28/22 Pre-op Diagnosis Complicated UTI Post-op Diagnosis Same Procedure Performed Cystoscopy with Kenalog injection Surgeon Doc Duckworth MD Anesthesia General Description of Procedure patient is brought the op suite was prepped draped in routine sterile fashion while in dorsal lithotomy position. 2% xylocaine jelly was introduced intraurethrally and allowed to stand for an appropriate period of time. General LMA anesthetic is administered per the anesthesia department. Cystoscopy is undertaken with a 21 F rigid cystoscope. He continues have this patchy hyperemia most pronounced in the right lateral bladder wall but also present a a lesser extent in the left lateral bladder wall. A total of 200 mg of Kenalog was injected using a Lamberto needle. These are injected in 0.5 cc aliquots using 6 injections on the right lateral bladder wall in for injections on the left. Patient's bladder was emptied and scope was removed. He tolerated the procedure well. Packing No Pathology None sent Complications No immediate complications Condition Stable
[2022-10-28 15:05] VITALS: BP 141/87; PULSE 79; RESP 11; TEMP 36.3; O2SAT 96
[2022-10-28 15:10] LABS: Glucose Point of Care 147 mg/dl (65-105)
[2022-10-28 15:20] VITALS: BP 150/89; PULSE 70; RESP 15; O2SAT 98
[2022-10-28 15:35] VITALS: BP 150/99; PULSE 69; RESP 16; O2SAT 94
[2022-10-28 15:43] VITALS: BP 127/75; PULSE 72; RESP 16
[2022-10-28 16:10] VITALS: BP 128/73; PULSE 75; RESP 16
[2022-10-28] MEDS: oxyCODONE HCL (*CRX) 5 MG TAB IR PO (16:32)
== END 2022-10-28 16:35 | disposition home or self-care (01) ==
PROVIDERS: PCP Family Medicine; Visit Provider Urology
PROC: 3E0K8GC Introduction of Other Therapeutic Substance into Genitourinary Tract, Via Natural or Artificial Opening Endoscopic (ICD-10-PCS; CPT 51720; principal; 2022-10-28 14:15)
DX: N39.0 Urinary tract infection, site not specified (principal); R30.0 Dysuria; E11.9 Type 2 diabetes mellitus without complications; I10 Essential (primary) hypertension; E78.00 Pure hypercholesterolemia, unspecified
CPT/HCPCS: 51720; 82948; A9270; J0690; J2405; J2704; J3301; J7120